=== PATIENT | male | born 1975 | race Caucasian/White ===

== ENCOUNTER 2017-10-06 10:54 | Emergency (ER) | payer MEDICAID ==
[~2017-10-06] VITALS: Ht 182.9 cm; Wt 94.8 kg
[2017-10-06] MEDS ORDERED: ATOR10TA9 PO (11:12)
[2017-10-06] MEDS ORDERED: SUMA25TA3 PO (11:13)
[2017-10-06] MEDS ORDERED: HYDROcodone/APAP 5/325 TABLET ONE (11:24)
[2017-10-06] MEDS ORDERED: ONDANSETRON ODT 4 MG ONE (11:24)
[2017-10-06] MEDS ORDERED: ONDANSETRON ODT 4 MG PO ONE (11:30)
[2017-10-06] MEDS ORDERED: HYDROcodone/APAP 5/325 TABLET PO ONE (11:30)
[2017-10-06 12:23] VITALS: BP 130/94
== END 2017-10-06 12:25 | disposition home or self-care (01) ==
LOC: ED 12:23
DX: S06.0X1A Concussion with loss of consciousness of 30 minutes or less, initial encounter (principal); S16.1XXA Strain of muscle, fascia and tendon at neck level, initial encounter; G43.009 Migraine without aura, not intractable, without status migrainosus; I10 Essential (primary) hypertension; F17.210 Nicotine dependence, cigarettes, uncomplicated; X58.XXXA Exposure to other specified factors, initial encounter; Y93.89 Activity, other specified; Y92.89 Other specified places as the place of occurrence of the external cause; Y99.8 Other external cause status
CPT/HCPCS: 70450; 72125; 93005; 99284; Q0162

== ENCOUNTER 2017-10-12 13:27 | Emergency (ER) | payer MEDICAID ==
[~2017-10-12] VITALS: Ht 182.9 cm; Wt 95.7 kg
[~2017-10-12 13:27] MED LIST: ATOR10TA9 PO; SUMA25TA3 PO
[2017-10-12] MEDS ORDERED: MONT10TA6 PO (14:22)
[2017-10-12] MEDS ORDERED: ATOR10TA9 PO (14:22)
[2017-10-12] MEDS ORDERED: CETI10TA24 PO (14:23)
[2017-10-12] MEDS ORDERED: UBID100C41 PO (14:24)
[2017-10-12] MEDS ORDERED: VITA1CAP PO (14:24)
[2017-10-12] MEDS ORDERED: CHOL500050 PO (14:24)
[2017-10-12] MEDS ORDERED: MAGN300C PO (14:25)
[2017-10-12] MEDS ORDERED: ACETAMINOPHEN 500 MG TABLET PO ONE (14:30)
[2017-10-12] MEDS ORDERED: PROMETHAZINE 25MG TABLET PO PRN (14:30)
[2017-10-12 15:29] LABS: ANION GAP 6 mmol/L (5-15); CALCIUM 8.6 mg/dL (8.5-10.1); CHLORIDE 109 mmol/L (98-107); CREATININE 1.23 mg/dL (0.7-1.3)
[2017-10-12 15:36] LABS: BASOPHILS # (AUTO) 0.04 x10^3/uL (0-0.1); BASOPHILS % (AUTO) 1 % (0-1); EOSINOPHILS # (AUTO) 0.12 x10^3/uL (0-0.4); EOSINOPHILS % (AUTO) 2 % (1-7); LYMPHOCYTES # (AUTO) 2.34 x10^3/uL (1-3.4); LYMPHOCYTES % (AUTO) 29 % (22-44); MD NO; MEAN CORPUSCULAR HEMOGLOBIN 32.3 pg (27.5-34.5); MEAN CORPUSCULAR HGB CONC 34.2 g/dL (33.2-36.2); MEAN CORPUSCULAR VOLUME 94.4 fL (81-97); MEAN PLATELET VOLUME 7.1 fL (7.4-10.4); MONOCYTES # (AUTO) 0.78 x10^3/uL (0.2-0.8); MONOCYTES % (AUTO) 10 % (2-9); NEUTROPHILS # (AUTO) 4.76 x10^3/uL (1.8-6.8); NEUTROPHILS % (AUTO) 59 % (42-75); PLATELET COUNT 247 x10^3/uL (130-400); RED BLOOD COUNT 5.14 x10^6/uL (4.38-5.82); RED CELL DISTRIBUTION WIDTH 12.7 % (9.4-14.8)
[2017-10-12] MEDS ORDERED: PROMETHAZINE 25MG TABLET ONE (15:45)
[2017-10-12] MEDS ORDERED: ACETAMINOPHEN 500 MG TABLET ONE (15:45)
[2017-10-12 16:15] VITALS: BP 128/81
== END 2017-10-12 16:17 | disposition home or self-care (01) ==
LOC: ED 16:11
DX: S06.0X1A Concussion with loss of consciousness of 30 minutes or less, initial encounter (principal); R53.1 Weakness; G43.909 Migraine, unspecified, not intractable, without status migrainosus; I10 Essential (primary) hypertension; F17.210 Nicotine dependence, cigarettes, uncomplicated; X58.XXXA Exposure to other specified factors, initial encounter; Y93.89 Activity, other specified; Y92.89 Other specified places as the place of occurrence of the external cause; Y99.8 Other external cause status
CPT/HCPCS: 36415; 70551; 80048; 83735; 85025; 99285; Q0169

== ENCOUNTER → 2018-01-13 | Outpatient (CLI) | payer MEDICAID ==
[~2018-01-13] MED LIST changes: +CETI10TA24 PO; +CHOL500050 PO; +MAGN300C PO; +MONT10TA6 PO; +UBID100C41 PO; +VITA1CAP PO
== END | disposition home or self-care (01) ==
LOC: CFH 15:58
PROVIDERS: ATTEND Neurological Surgery
DX: M51.27 Other intervertebral disc displacement, lumbosacral region (principal); M48.07 Spinal stenosis, lumbosacral region
CPT/HCPCS: 72148

== ENCOUNTER → 2018-02-15 | Outpatient (CLI) | payer MEDICAID | END | disposition home or self-care (01) | LOC: CFH 11:24 | PROVIDERS: ATTEND Family Medicine | DX: M43.22 Fusion of spine, cervical region (principal) | CPT/HCPCS: 72040 ==